=== PATIENT | female | born 1940 | race Caucasian/White ===

== ENCOUNTER 2017-12-18 13:12 | Outpatient (CLI) | payer MEDICARE ==
--- NOTE | 2017-12-18 15:29 | RAD ---
TWO VIEWS LEFT HIP: Date: 12-18-17 History: Left hip pain. FINDINGS: There is no evidence of a fracture, dislocation, or other osseous abnormality involving the left hip. IMPRESSION: No acute osseous abnormality. POS: JAMES
== END 2017-12-18 13:13 | disposition home or self-care (01) ==
LOC: RAD 13:12
PROVIDERS: ATTEND Urology
DX: M25.552 Pain in left hip (principal)
CPT/HCPCS: 81001

== ENCOUNTER 2017-12-25 07:51 | Outpatient (CLI) | payer MEDICARE ==
[2017-12-25] MEDS ORDERED: Iopamidol 370 76% 100 ML VIAL ONE (09:26)
--- NOTE | 2017-12-25 09:38 | CT ---
CT ABDOMEN AND PELVIS WITH AND WITHOUT IV CONTRAST: Date: 12/25/17 PROVIDED CLINICAL HISTORY: Hematuria and left flank pain. FINDINGS: Comparison made with the study dated 05/16/16. The visualized lung bases are free of significant opacity. Small hypodensities involving the left kidney appear stable, likely reflecting cysts. The liver, sple en, pancreas, kidneys, and adrenal glands demonstrate an otherwise unremarkable CT appearance. There is no evidence for urinary tract calculi or hydronephrosis. The delayed images demonstrate no evidenc e for filling defect involving the opacified renal collecting systems, ureters, or urinary bladder. There is inflammatory fat stranding seen about the distal descending colon. Numerous sigmoid and desc ending colonic diverticula are seen. No evidence for extraluminal gas or pericolonic fluid collection . There is no bowel dilatation, additional inflammatory fat stranding, free fluid, or free air apparent . Changes of Joycelyn fundoplication are again seen. Scattered atherosclerotic vascular calcifications ar e noted. The osseous structures demonstrate no concerning osteoblastic or osteolytic lesions. Advanced lumbar spine degenerative changes are redemonstrated. IMPRESSION: 1. An etiology for the patient's hematuria is not evident on this examination. 2. Uncomplicated descending colon diverticulitis. 3. Other chronic findings as above. POS: [facility]
== END 2017-12-25 07:52 | disposition home or self-care (01) ==
LOC: CT 07:51
PROVIDERS: ATTEND Urology
DX: R31.29 Other microscopic hematuria (principal); K57.32 Diverticulitis of large intestine without perforation or abscess without bleeding; R93.422 Abnormal radiologic findings on diagnostic imaging of left kidney; I70.90 Unspecified atherosclerosis; M47.896 Other spondylosis, lumbar region
CPT/HCPCS: 74178; 82565

== ENCOUNTER 2018-01-31 08:20 | Outpatient (CLI) | payer MEDICARE | END 2018-01-31 08:21 | disposition home or self-care (01) | LOC: BICMAMMO 08:20 | PROVIDERS: ATTEND Family Medicine | DX: Z12.31 Encounter for screening mammogram for malignant neoplasm of breast (principal) | CPT/HCPCS: 77063; 77067 ==

== ENCOUNTER 2018-04-17 07:21 | Outpatient (CLI) | payer MEDICARE | END 2018-04-17 07:22 | disposition home or self-care (01) | LOC: BICULT 07:21 | PROVIDERS: ATTEND Otolaryngology Plastic Surgery within the Head & Neck | DX: D49.7 Neoplasm of unspecified behavior of endocrine glands and other parts of nervous system (principal); E04.2 Nontoxic multinodular goiter | CPT/HCPCS: 76536 ==

== ENCOUNTER 2018-09-14 03:35 | Emergency (ER) | payer MEDICARE ==
[2018-09-14 04:00] LABS: Bilirubin Negative (Negative); Blood, Urine Small (Negative); Clarity CLOUDY (Clear); Glucose, Urine (Dipstick) Negative (Negative); Leukocyte Small (Negative); Nitrite Negative (Negative); Protein, Urine (Dipstick) Negative (Neg-Trace); Specific Gravity, Urine 1.019 (1.002-1.036); Urobilinogen 0.2 mg/dL (0.2-1.0); pH, Urine 5.5 (5.0-9.0)
[2018-09-14 04:05] LABS: Bacteria/HPF None Seen HPF (None Seen); Squamous Epithelial 0-3 HPF (0-3)
[2018-09-14 04:06] LABS: Yeast-AUWi Flag 43.3 (0-25.0)
[2018-09-14 04:15] LABS: RBC/HPF 0-3 HPF (0-3)
[2018-09-14 04:16] LABS: Hyaline Casts/LPF NONE SEEN LPF (0-3 Hyaline); Yeast-All Forms None Seen HPF (None Seen)
[2018-09-14 04:20] LABS: #Eosinphils 0.1 thou/uL (0.0-0.7); #Lymphocytes 1.9 thou/uL (1.20-3.40); #Monocytes 0.7 thou/uL (0.11-0.59); #Neutrophils 5.8 thou/uL (1.40-6.50); %Basophils 0.5 % (0.0-1.0); %Eosinophils 1.2 % (0.0-10.0); %Lymphocytes 22.3 % (21.0-51.0); %Monocytes 8.5 % (0.0-10.0); %Neutrophils 67.6 % (42.0-75.0); Hemoglobin 13.2 g/dL (12.0-16.0); Mean Corpuscular HGB CONC 33.9 g/dL (32.0-36.0); Mean Corpuscular Hemoglobin 33.6 pg (27.0-31.0); Mean Corpuscular Volume 99.2 fL (78.0-98.0); Mean Platelet Volume 8.8 fL (7.4-10.4); Platelet Count 210 thou/uL (130-400); RBC Distribution Width 11.6 % (11.5-14.5); Red Blood Cell (RBC) Count 3.93 mill/uL (4.20-5.40); White Blood Cell (WBC) Count 8.6 thou/uL (4.8-10.8)
[2018-09-14 04:41] LABS: ALT (SGPT) 9 U/L (8-55); AST (SGOT) 12 U/L (5-34); Albumin 3.8 g/dL (3.4-4.8); Alkaline Phosphatase 73 U/L (40-150); Anion Gap 12 mmol/L (10-20); BUN (Urea Nitrogen) 19 mg/dL (9.8-20.1); Bilirubin, Total 0.4 mg/dL (0.2-1.2); Calc. Creatinine Clearance 0 mL/min (70-130); Calcium 9.3 mg/dL (7.8-10.44); Carbon Dioxide 26 mmol/L (23-31); Chloride 103 mmol/L (98-107); Estimated GFR-MDRD 45; Globulin 3.2 g/dL (2.4-3.5); Glucose 123 mg/dL (83-110); Lipase 22 U/L (8-78); Potassium 3.4 mmol/L (3.5-5.1); Sodium 138 mmol/L (136-145)
[2018-09-14] MEDS ORDERED: Ondansetron PF 4 MG/2 ML Vial ONE (06:20)
[2018-09-14] MEDS ORDERED: Morphine 4 MG/ML VIAL ONE (06:20)
--- NOTE | 2018-09-14 08:39 | CT ---
PRELIMINARY REPORT/[facility]/EMERGENTY AFTER-HOURS PROCEDURE Addendum created by Isauro Wick MD on 09/14/2018 6:06 AM Central Time ([place] & [place]) THIS REPORT CONTAINS FINDINGS THAT MAY BE CRITICAL TO PATIENT CARE. The findings were verbally commun icated via telephone conference with BRANDY JOSUE at 6:05 AM RAILWAY ENGINEER on 09/14/2018. The findings were acknowledged and understood. Correlate clinically for prior hysterectomy versus uterine atrophy. Initial Report created on 09/14/2018 5:49 AM Central Time ([place] & [place]) CT Abdomen and Pelvis With Contrast EXAM DATE/TIME: 09/14/2018 5:07 AM CLINICAL HISTORY: 77 years old, female; Pain; Abdominal pain; Generalized; Patient HX: F 77 presents to ed with llq and epigastric abdominal pain that radiates to her left flank. Denies any change to bowel habits. HX of diverticulosis and diverticulitis. Chronic medications for HTN. Pain began 1 day pilot captain, took a hydrocodone at 20: 00 yesterday. TECHNIQUE: Axial computed tomography images of the abdomen and pelvis with intravenous contrast. Coronal reformatted images were created and reviewed. COMPARISON: No relevant prior studies available. FINDINGS: Lower thorax: There is subpleural atelectasis of the dependent portions of the lungs. Patient is post surgery at the gastroesophageal junction probably for hiatal hernia repair. ABDOMEN: Liver: There are no focal liver lesions identified. Gallbladder and bile ducts: The gallbladder is normal. There is no evidence of biliary ductal dilatio n. Pancreas: The pancreas appears normal. No ductal dilatation. Spleen: The spleen is normal. Adrenals: The adrenal glands are normal. Kidneys and ureters: The right kidney is normal. There is marked LEFT hydroureteronephrosis with abru pt collapse of the LEFT ureter within the lateral LEFT pelvis adjacent to the obturator canal possibl y representing obturator hernia with ureteral entrapment. There is trace fluid in the perirenal soft tissue. The There is a tiny LEFT renal cyst, incompletely evaluated. Stomach and bowel: Stomach is otherwise unremarkable. The duodenum is unremarkable. There is moderate colonic diverticulosis. Appendix: No evidence of appendicitis. PELVIS: Bladder: Unremarkable as visualized. Reproductive: Surgically absent. ABDOMEN and PELVIS: Intraperitoneal space: Normal. No free air. No significant fluid collection. Bones/joints: No acute fracture. No dislocation. Soft tissues: Unremarkable. Vasculature: Normal. No abdominal aortic aneurysm. Lymph nodes: Normal. No enlarged lymph nodes. IMPRESSION: Marked LEFT hydroureteronephrosis with abrupt collapse of the LEFT ureter within the lateral LEFT pel vis adjacent to the obturator canal suspicious for obturator hernia with ureteral entrapment. Thank you for allowing us to participate in the care of your patient. Dictated and Authenticated by: Isauro Wick MD 09/14/2018 5:49 AM Central Time ([place] & [place]) FINAL REPORT CT ABDOMEN AND PELVIS WITH IV CONTRAST: Date: 09/14/18 FINDINGS/IMPRESSION: I agree with the preliminary report given by Vernell. POS: OFF
--- NOTE | 2018-09-14 16:20 | CON ---
DATE OF CONSULTATION: 09/14/2018 CHIEF COMPLAINT: Left abdominal pain, left groin pain. HISTORY OF PRESENT ILLNESS: The patient is a 77-year-old female, who is known to myself from prior evaluation. She presented to the emergency room today complaining of left lower quadrant abdominal pain. She also notes epigastric pain. She was evaluated in the emergency room per Dr. Ha. CT scan was obtained surprisingly revealing a significant left hydronephrosis and hydroureter with what appeared to be an obturator hernia, into which the ureter seemed to be somewhat obstructed leading to the hydroureter. Myself and her urologist, Dr. Mackenzie, were consulted in regard to this. LABORATORY DATA: Her laboratory evaluation reveals a normal CBC with a white blood cell count of 8.6 and hemoglobin of 13. Her comprehensive metabolic panel reveals more or less normal electrolytes. Her creatinine is a little bit elevated at 1.1. There were no other significant abnormal findings on her CT scan. PAST MEDICAL HISTORY: Significant for, 1. Hypertension. 2. Arthritis. 3. History of sinusitis. 4. History of gastroesophageal reflux disease. 5. History of peptic ulcer issues. 6. Anxiety. PAST SURGICAL HISTORY: 1. Right shoulder surgery 2007. 2. Cataract surgery. 3. Foot surgery. 4. Cystocele repair. 5. Rectocele repair. 6. In 2011, she had what she believes was a left ureteral stent placed by a urologist in [place] for a similar problem. She was told at that time that she had some form of hernia causing this. MEDICATIONS: 1. Fluoxetine. 2. Losartan. 3. Hydrochlorothiazide. 4. Dexilant. ALLERGIES: COMPAZINE. PERSONAL AND SOCIAL HISTORY: She is . She has five children. She does not smoke. Drinks alcohol rarely. She lives by herself. REVIEW OF SYSTEMS: Otherwise unremarkable. FAMILY HISTORY: Noncontributory. PHYSICAL EXAMINATION: VITAL SIGNS: In the emergency room, she was afebrile. Pulse is 66, blood pressure 130/76. Her vital signs remained stable throughout her time in the emergency room. GENERAL: She is a well-developed, well-nourished, pleasant white female, resting, in no acute distress. She is alert and oriented x3. I examined her at the same time with Dr. Mackenzie. HEAD, EYES, EARS, NOSE, AND THROAT: Unremarkable. NECK: Supple. LUNGS: Clear to auscultation. CARDIAC: Regular rate and rhythm without murmur. ABDOMEN: Soft, nontender, and nondistended. Bowel sounds present. Normoactive. EXTREMITIES: Unremarkable. There is no palpable mass below the inguinal ligament. ASSESSMENT AND PLAN: The patient with a left obturator hernia that appears to be causing ureteral entrapment, injury, and hydronephrosis. Dr. Mackenzie and I spoke with her regarding possible temporizing measure with a ureteral stent, but she understands that the eventual treatment for this will be hernia repair. I told her that I would recommend approaching this as a robotic approach, but an open approach would be a possibility as well. I explained to her that I will be out of town for the next week and a half, but would be happy to schedule her thereafter. Dr. Mackenzie explained that he would be happy to place a stent, but that for now it does not seem to be necessary except for comfort measures. She opts against the stent for now, and I therefore gave her a prescription for [facility] to help her with her discomfort. I will schedule her for laparoscopic repair of her left obturator hernia with a robotic assistance and we will plan on performing this just after the of the year. She understands that there are general surgeons and urologist available to cover for myself and Dr. Mackenzie, should anything become more problematic in the interim. Job ID: [id number]
== END 2018-09-14 09:05 | disposition home or self-care (01) ==
LOC: ERS 03:35
DX: N13.1 Hydronephrosis with ureteral stricture, not elsewhere classified (principal); F32.9 Major depressive disorder, single episode, unspecified; Z79.82 Long term (current) use of aspirin; Z79.899 Other long term (current) drug therapy
CPT/HCPCS: 36415; 74177; 80053; 81003; 81015; 83690; 85025; 93005; 96361; 96374; 96375; J2270; J2405

== ENCOUNTER → 2018-09-27 | Day surgery (SDC) | payer MEDICARE ==
[2018-09-26 11:01] VITALS: BMI 29.0
== END ==
LOC: SDC 07:12
PROVIDERS: ATTEND Specialist
DX: K45.0 Other specified abdominal hernia with obstruction, without gangrene (principal); Z53.9 Procedure and treatment not carried out, unspecified reason; Z79.82 Long term (current) use of aspirin; Z79.899 Other long term (current) drug therapy; Z88.8 Allergy status to other drugs, medicaments and biological substances

== ENCOUNTER 2018-10-06 17:46 | Inpatient (IN) | payer MEDICARE ==
[~2018-10-06 17:46] MED LIST: ISOVUE-370 76%-LOCM 1 ML ONE
[2018-10-06 18:46] LABS: #Eosinphils 0.1 thou/uL (0.0-0.7); #Lymphocytes 1.8 thou/uL (1.20-3.40); #Monocytes 0.7 thou/uL (0.11-0.59); #Neutrophils 5.1 thou/uL (1.40-6.50); %Basophils 0.6 % (0.0-1.0); %Lymphocytes 23.3 % (21.0-51.0); %Monocytes 9.3 % (0.0-10.0); %Neutrophils 65.8 % (42.0-75.0); Hemoglobin 13.2 g/dL (12.0-16.0); Mean Corpuscular HGB CONC 33.3 g/dL (32.0-36.0); Mean Corpuscular Hemoglobin 33.3 pg (27.0-31.0); Mean Corpuscular Volume 99.7 fL (78.0-98.0); Mean Platelet Volume 9.2 fL (7.4-10.4); Platelet Count 219 thou/uL (130-400); RBC Distribution Width 11.6 % (11.5-14.5); Red Blood Cell (RBC) Count 3.97 mill/uL (4.20-5.40); White Blood Cell (WBC) Count 7.8 thou/uL (4.8-10.8)
[2018-10-06 18:54] LABS: Bilirubin Negative (Negative); Blood, Urine Trace (Negative); Clarity CLEAR (Clear); Glucose, Urine (Dipstick) Negative (Negative); Leukocyte Small (Negative); Nitrite Negative (Negative); Protein, Urine (Dipstick) Negative (Neg-Trace); Specific Gravity, Urine 1.024 (1.002-1.036)
[2018-10-06 18:58] LABS: Bacteria/HPF None Seen HPF (None Seen); Hyaline Casts/LPF 0-3 HYALINE CAST LPF (0-3 Hyaline); Pathc Cast-AUWi Flag 0.58 (0-2.49); Squamous Epithelial 0-3 HPF (0-3)
[2018-10-06 19:07] LABS: ALT (SGPT) 10 U/L (8-55); AST (SGOT) 14 U/L (5-34); Albumin 3.9 g/dL (3.4-4.8); Alkaline Phosphatase 77 U/L (40-150); Anion Gap 16 mmol/L (10-20); BUN (Urea Nitrogen) 24 mg/dL (9.8-20.1); Bilirubin, Total 0.2 mg/dL (0.2-1.2); Calc. Creatinine Clearance 0 mL/min (70-130); Calcium 9.4 mg/dL (7.8-10.44); Carbon Dioxide 22 mmol/L (23-31); Chloride 103 mmol/L (98-107); Estimated GFR-MDRD 41; Globulin 3.3 g/dL (2.4-3.5); Glucose 102 mg/dL (83-110); Lipase 34 U/L (8-78); Protein, Total 7.2 g/dL (6.0-8.3); Sodium 137 mmol/L (136-145)
[2018-10-06] MEDS ORDERED: Ketorolac Tromethamine 30 MG/ML VIAL ONE (19:50)
[2018-10-06] MEDS ORDERED: Morphine 4 MG/ML VIAL ONE (19:50)
[2018-10-06] MEDS ORDERED: Ondansetron PF 4 MG/2 ML Vial ONE (20:14)
--- NOTE | 2018-10-06 20:40 | CT ---
ABDOMEN AND PELVIC CT WITH IV CONTRAST 10/06/18 HISTORY: Abdominal pain, hernia. COMPARISON: 09/14/18 FINDINGS: The lung bases are clear. Postop changes noted involving the stomach. The gallbladder, liver, pancrea s, and spleen appear unremarkable. Adrenal glands are unremarkable. There is again noted to be left r enal hydronephrosis with some perinephric fat stranding and dilated ureter down into the level of the left sciatic notch through which it has herniated. The amount of hydronephrosis is stable to very sl ightly improved from the prior study at which time there was also noted to be herniation of the left ureter into the sciatic notch. The right kidney is unremarkable. Extensive colonic diverticulosis wit hout acute diverticulitis. Urinary bladder is unremarkable. IMPRESSION: Marked left renal hydronephrosis with some perinephric fat stranding, evidence for obstruction. Littl e change from the prior 09/14/18 study. Urology followup is strongly recommended in this regard. Give n the abnormal position of the left ureter which is herniated into the left sciatic notch and causing marked proximal obstruction. Colonic diverticulosis without diverticulitis. POS: JAMES
[2018-10-06] MEDS ORDERED: cefTRIAXone\\ROCEPHIN 2 GM VIAL ONE (22:18)
[2018-10-06] MEDS ORDERED: Fentanyl 100 MCG/2 ML VIAL ONE (22:22)
[2018-10-06] MEDS ORDERED: Morphine 4 MG/ML VIAL SLOW IVP PRN (22:51)
[2018-10-06] MEDS ORDERED: HYDROcodone/Acetaminophen 5/325 mg Tablet PO PRN ×2 (22:52)
[2018-10-06] MEDS ORDERED: Ondansetron PF 4 MG/2 ML Vial IVP PRN (22:52)
[2018-10-06] MEDS ORDERED: Ondansetron ODT 4 MG TAB SL PRN (22:52)
[2018-10-06] MEDS ORDERED: Acetaminophen 325 MG TAB PO PRN (22:52)
[2018-10-06] MEDS ORDERED: Sodium Chloride 0.45% 1,000 ML IV SCH (23:00)
[2018-10-07] MEDS ORDERED: Morphine 4 MG/ML VIAL SLOW IVP PRN ×2 (00:49→12:15)
[2018-10-07] MEDS ORDERED: Ondansetron PF 4 MG/2 ML Vial IVP PRN (00:49)
[2018-10-07] MEDS ORDERED: Ondansetron ODT 4 MG TAB SL PRN (00:50)
[2018-10-07] MEDS ORDERED: HYDROcodone/Acetaminophen 5/325 mg Tablet PO PRN ×2 (00:50)
[2018-10-07] MEDS ORDERED: Acetaminophen 325 MG TAB PO PRN (00:50)
[2018-10-07 01:00] VITALS: BMI 29.4
[2018-10-07] MEDS ORDERED: Sodium Chloride 0.45% 1,000 ML IV SCH (01:00)
[2018-10-07] MEDS ORDERED: diphenhydrAMINE 25 MG CAP PO PRN (11:33)
[2018-10-07] MEDS ORDERED: hydrALAZINE 20 MG/ML VIAL SLOW IVP PRN (11:33)
--- NOTE | 2018-10-07 14:49 | HP ---
REASON FOR ADMISSION: Left flank pain with known uretero-sciatic hernia. CHIEF COMPLAINT: "My left side hurt too bad." HISTORY OF PRESENT ILLNESS: Ms. Griffin is a 77-year-old white female, who is well known to me from previous admissions regarding a left ureteral obstruction. She has previously had this treated with a ureteral stent many years ago, which temporized the problem and actually got the ureter out of the hernia sac. However, she presented with a recurrent uretero-sciatic hernia toward the end of August. We had planned a tentative surgery with her in early September, but this had to be altered when it was discovered that she did not have an obturator hernia, but truly a uretero-sciatic hernia. She was tentatively scheduled at that point for October 18 for surgery, which she was waiting for, but unfortunately, she began having worsening left flank pain with nausea. She did not have vomiting nor has she experienced any fevers, but her pain became so bad to the point where her oral pain medications were no longer controlling her pain. As such, she came to the ER where I had her admitted for further pain control. She currently states that she is still nauseated, but not vomiting and still has no fevers. Labs in the ER did not suggest any kind of infection other than continued ureteral inflammation. PAST MEDICAL HISTORY: 1. Hypertension. 2. Arthritis. 3. Sinusitis. 4. GERD. 5. Peptic ulcer disease. 6. Anxiety. 7. Uretero-sciatic hernia. PAST SURGICAL HISTORY: 1. Right shoulder surgery. 2. Cataract surgery. 3. Foot surgery. 4. Cystocele repair. 5. Rectocele repair. 6. Left ureteral stent placement in [place]. HOME MEDICATIONS: 1. Fluoxetine. 2. Losartan. 3. Hydrochlorothiazide. 4. Dexilant. 5. Calcium carbonate with D3. 6. Baby aspirin. ALLERGIES: COMPAZINE. FAMILY HISTORY: Noncontributory. SOCIAL HISTORY: The patient is . She has 5 children. Denies smoking. Drinks alcohol only on rare occasion. Does not use any illicit drugs. REVIEW OF SYSTEMS: A 12-point review of systems is unremarkable other than what was commented on the HPI, specifically her left flank pain and nausea. Otherwise, she does not endorse any other positive symptoms. PHYSICAL EXAMINATION: VITAL SIGNS: Temperature 97.8, pulse 71, respirations 18, blood pressure 115/66, and saturations 96% on room air. GENERAL: Appears slightly uncomfortable with a washcloth on her forehead, but is otherwise communicative and alert, well-nourished, well-developed, appears stated age. HEENT: Normocephalic, atraumatic. Sclerae nonicteric. Pupils symmetric and round. Moist mucous membranes. Trachea midline. CARDIOVASCULAR: Regular rate and rhythm. Normal S1 and S2, symmetric pulses. CHEST: No increased work of breathing. Symmetric expansion. LUNGS: Clear anteriorly. ABDOMEN: Soft, nondistended. Tenderness to palpation on the left with left CVA tenderness. No significant suprapubic tenderness. No guarding, rebound, or peritoneal signs. Positive bowel sounds. No organomegaly. : Deferred at this time. MUSCULOSKELETAL: No joint deformities or joint erythema noted. Full range of Motion. NEUROLOGIC: Cranial nerves 2 through 12 grossly intact. No focal or sensory motor deficits identified. SKIN: Warm and dry. Good turgor. No rashes or lesions. PSYCHIATRIC: Alert and oriented x3, appears uncomfortable, but otherwise appropriate mood and affect. LABORATORY DATA: On laboratory evaluation, full set of labs in the [facility] system which I have reviewed. Of note, the patient's white count is 7.8 with a hemoglobin of 13.2. Creatinine is currently 1.27. Urinalysis demonstrates trace blood, small leukocyte esterase, 4 to 6 red cells, 4 to 6 white blood cells, nitrite negative, and bacteria none seen. Urine culture is currently pending. IMAGING STUDIES: CT from October 06 demonstrates marked left renal hydronephrosis with perinephric stranding with evidence for obstruction, which is relatively unchanged from September 14 when she initially presented to the ER. The left ureter is in an abnormal position, herniated into the left sciatic notch, causing marked proximal obstruction. There is diverticulosis without diverticulitis. ASSESSMENT AND PLAN: A 77-year-old white female with uretero-sciatic hernia with left ureteral obstruction and hydronephrosis with uncontrolled pain. I discussed this with the patient and told her that, at this time, I would not recommend ureteral stent placement as we are planning a surgery as the ureteral stent will cause significant inflammation and make extraction of the ureter out of the hernia sac difficult, along with dissection and reanastomosis of the ureter if necessary. As such, I told her a better option would be a nephrostomy tube, but she does not like the idea of a nephrostomy tube and states that she wants to have her surgery moved up. At the current time, I am not sure where on the surgery scheduled, I will be able to move her up, but I can discuss this with Dr. Quiñonez and see if there can be availability for an add-on case sometime this week, but she does understand that add-on cases can be subjected to change and may be canceled altogether, and that there will be no definitive time even possible this week as there is no absolute emergency to do the surgery at the current time, and the nephrostomy tube is always a viable option. I did go over the surgery in detail with her including the postoperative course and recovery as well as risks, which include, but are not limited to bleeding, infection, ureteral stricture formation, damage to the ureter, need for further surgeries, likely persistent ureteral reflux if a ureteral reimplantation is necessary, and a possibility for recurrent uretero-sciatic hernia despite correction. She understands these risks and states that she wants to go forward with the surgery. I will discuss this with Dr. Quiñonez, and in the meantime, we will keep her here until her urine culture finalizes and keep her on antibiotics. As of now, since she does not want to have a nephrostomy tube, I will let her eat and drink, and we will continue to monitor her renal function and labs until we have a definitive plan in place. Job ID: [id number]
[2018-10-07] MEDS: Ondansetron PF 4 MG/2 ML Vial IVP PRN (15:11)
[2018-10-07] MEDS: HYDROcodone/Acetaminophen 5/325 mg Tablet PO PRN (15:12)
[2018-10-07] MEDS: Lactated Ringer's 1,000 ML IV SCH (19:53)
[2018-10-07] MEDS ORDERED: cefTRIAXone\\ROCEPHIN 1 GM in Sodium Chloride 0.9% 100 ML IVPB SCH (22:00)
[2018-10-08] MEDS: Ondansetron PF 4 MG/2 ML Vial IVP PRN (05:35)
[2018-10-08 06:05] LABS: #Eosinphils 0.1 thou/uL (0.0-0.7); #Lymphocytes 1.7 thou/uL (1.20-3.40); #Monocytes 0.7 thou/uL (0.11-0.59); #Neutrophils 6.6 thou/uL (1.40-6.50); %Basophils 0.2 % (0.0-1.0); %Eosinophils 1.1 % (0.0-10.0); %Lymphocytes 18.3 % (21.0-51.0); %Monocytes 7.6 % (0.0-10.0); %Neutrophils 72.8 % (42.0-75.0); Hemoglobin 12.9 g/dL (12.0-16.0); Mean Corpuscular HGB CONC 33.6 g/dL (32.0-36.0); Mean Corpuscular Volume 98.4 fL (78.0-98.0); Mean Platelet Volume 9.3 fL (7.4-10.4); Platelet Count 195 thou/uL (130-400); RBC Distribution Width 11.5 % (11.5-14.5)
[2018-10-08 06:18] LABS: Anion Gap 13 mmol/L (10-20); BUN (Urea Nitrogen) 16 mg/dL (9.8-20.1); Calc. Creatinine Clearance 42 mL/min (70-130); Carbon Dioxide 25 mmol/L (23-31); Chloride 105 mmol/L (98-107); Estimated GFR-MDRD 37; Glucose 113 mg/dL (83-110); Potassium 3.5 mmol/L (3.5-5.1); Sodium 139 mmol/L (136-145)
[2018-10-08] MEDS: Lactated Ringer's 1,000 ML IV SCH ×2 (06:32→14:59)
[2018-10-08] MEDS: Hydrochlorothiazide 25 MG TAB PO SCH (07:26)
[2018-10-08] MEDS: FLUoxetine HCl 20 MG CAP PO SCH (07:26)
[2018-10-08] MEDS ORDERED: Losartan 25 MG TAB PO SCH (09:00)
[2018-10-08] MEDS ORDERED: Bupivacaine/Epinephrine 0.25% 30 ML VIAL ONE (11:31)
[2018-10-08] MEDS ORDERED: Iothalamate Meglumine 60% 50 ML VIAL FS ONE (11:31)
[2018-10-08] MEDS ORDERED: Morphine 2 MG/ML SYRINGE ONE (11:43)
[2018-10-08] MEDS ORDERED: Ondansetron PF 4 MG/2 ML Vial ONE ×2 (11:44→16:52)
[2018-10-08] MEDS ORDERED: Fentanyl 250 MCG/5 ML VIAL ONE (11:54)
[2018-10-08] MEDS ORDERED: Midazolam HCl 2 mg/2 ml Vial ONE (12:09)
[2018-10-08] MEDS ORDERED: Dexamethasone 4 mg/ml Vial ONE (12:09)
[2018-10-08] MEDS ORDERED: Fentanyl 100 MCG/2 ML VIAL ONE (12:09)
[2018-10-08] MEDS ORDERED: CEFAZOLIN 2 GM/50 ML BAG ONE (12:18)
--- NOTE | 2018-10-08 12:21 | PRG ---
DATE OF SERVICE: 10/08/2018 SUBJECTIVE: The patient states that she has had a lot of nausea this morning. Her pain is relatively well controlled, but she is not throwing up, just constantly feels nauseated. She apparently does not tolerate Phenergan and Zofran has not been working well. OBJECTIVE: VITAL SIGNS: Temperature 98.4, pulse 82, respirations 16, blood pressure 132/72, and saturations 95% on room air. GENERAL: Appears slightly uncomfortable and ill-appearing, but otherwise she is communicative and alert. CARDIOVASCULAR: Regular rate and rhythm. CHEST: No increased work of breathing. Symmetric expansion of lungs. ABDOMEN: Soft, nontender, and nondistended. Positive bowel sounds. Very mild left CVA tenderness now. EXTREMITIES: No clubbing, cyanosis, or edema. LABORATORY DATA: On laboratory evaluation, the full set of labs in the [facility] system, which I reviewed. Of note, white count is 9 with a hemoglobin of 12.9. Creatinine has risen slightly to 1.39. ASSESSMENT AND PLAN: A 78-year-old white female with a left ureteral sciatic hernia with ureteral obstruction and worsening hydronephrosis and slight decline in kidney function. We had discussed about taking her to the operating room early and after discussion with Dr. Quiñonez, we had elected to do her surgery today. She is already n.p.o. and scheduled for the surgery. We have already discussed the surgery in detail in the prior note with all risks and benefits discussed. She is ready for surgery and will be taken today. We will keep her in the hospital for postoperative recovery. Job ID: [id number]
--- NOTE | 2018-10-08 13:36 | CON ---
DATE OF CONSULTATION: HISTORY OF PRESENT ILLNESS: Ms. Griffin is known to myself from a recent consultation in the emergency room on September 14. At that time, she had presented complaining of left-sided abdominal pain. CT scan was felt by Radiology at that time to be consistent with an obturator hernia that was leading to hydroureter and hydronephrosis. Decision was made at that time to discharge her from the emergency room and plan an elective surgery to repair her obturator hernia. She had presented to the hospital on September 27 for this purpose. At that time, review of the CT scan demonstrated that her hernia was in fact not an obturator hernia, but a ureterosciatic hernia. For this reason, the operation was canceled and decision was made to coordinate with her urologist, Dr. Mackenzie for appropriate treatment of this very unusual hernia. She did return to the emergency room late at night on October 06 (Monday). She was admitted by Dr. Mackenzie for pain control. Dr. Mackenzie saw her and I have coordinated and decided to proceed with her surgery for today, October 08. Past medical history, past surgical history, medications, allergies, personal, social history, etc., are unchanged from my consultation on September 14. ASSESSMENT: The patient with a very unusual ureterosciatic hernia leading to hydronephrosis and hydroureter. Dr. Mackenzie and I have elected to proceed with an open repair of this. I have discussed the operation in detail with her as well as potential risks. She understands the possibility of repair of the hernia with or without mesh as well as possibility of ureteral resection with primary repair versus reimplantation. Dr. Mackenzie also plans on initial cystoscopy and guidewire placement. Job ID: [id number]
[2018-10-08] MEDS ORDERED: Albumin 5% 500 ML ONE (14:26)
[2018-10-08] MEDS ORDERED: Bupivacaine HCl 0.5%/Epinephrine 1:200,000/PF 30 ml Vial ONE (15:32)
[2018-10-08] MEDS ORDERED: Ondansetron HCl/PF 4 MG/2 ML Vial IVP PRN (15:40)
--- NOTE | 2018-10-08 15:58 | RAD ---
RETROGRADE URETEROGRAM INTRAOEPRATIVE FLUOROSCOPY: HISTORY: Stent placement. FINDINGS: Intraoperative fluoroscopy was provided for retrograde study as performed by Dr. Mackenzie. Spot fluor oscopic images show contrast opacification of a dilated left ureter. Final image shows the proximal pigtail of the left ureteral stent overlying the lower renal pelvis. FLUORO TIME: 32 seconds. POS: [facility]
[2018-10-08 16:22] LABS: Hemoglobin 10.2 g/dL (12.0-16.0); Mean Corpuscular Hemoglobin 33.5 pg (27.0-31.0); Mean Corpuscular Volume 98.7 fL (78.0-98.0); Mean Platelet Volume 8.9 fL (7.4-10.4); Platelet Count 171 thou/uL (130-400); RBC Distribution Width 11.6 % (11.5-14.5); Red Blood Cell (RBC) Count 3.04 mill/uL (4.20-5.40); White Blood Cell (WBC) Count 13.3 thou/uL (4.8-10.8)
--- NOTE | 2018-10-08 16:45 | OP ---
DATE OF PROCEDURE: 10/08/2018 PREOPERATIVE DIAGNOSIS: Left ureterosciatic hernia. POSTOPERATIVE DIAGNOSIS: Left ureterosciatic hernia. PROCEDURES PERFORMED: Open repair of ureterosciatic hernia with cystoscopy and left ureteral stent placement per Dr. Mackenzie, ureteropexy per Dr. Mackenzie, placement of omental flap per Dr. Quiñonez. CO-SURGEON: Jose Mackenzie MD ANESTHESIA: General endotracheal. INDICATIONS: The patient is a 78-year-old white female. She presented with left flank and pelvic pain with CT scan demonstrated a left ureterosciatic hernia. She presents to the operating room today for repair of this. DESCRIPTION OF PROCEDURE: Informed consent was obtained. The patient was taken to the operating room, where general endotracheal anesthesia was obtained with the patient in supine position. She was placed into a dorsal lithotomy using Yellofins stirrups. Dr. Mackenzie performed cystoscopy and was able to identify the area of obstruction within the distal left ureter. A guidewire was passed across this. It appeared that the obstruction of the ureter may have been somewhat alleviated by placing the wire as the ureteral morphology changed after this was placed. The abdomen was prepped with ChloraPrep and draped in sterile fashion. TAP block had been placed preoperatively per Anesthesia. A low midline abdominal incision was created and dissection was carried through skin and subcutaneous tissue. Fascia was incised and the peritoneal cavity was entered in the midline. Bookwalter retraction device was utilized to assist with retraction and exposure. The patient was noted to have a segment of small bowel that was adherent to the right pelvic sidewall. This was mobilized. There were couple of small serosal defects in the small bowel and these were repaired with 3-0 silk suture. The small bowel was then reflected out of the pelvis. The lateral peritoneal attachments of the sigmoid colon were mobilized. The sigmoid colon was reflected laterally. There were adhesions from a prior hysterectomy, such that the anterior aspect of the upper rectum was adherent to the peritoneum anteriorly. This was mobilized away to give full exposure of the sigmoid colon and rectum. Dissection was then carried out in the retroperitoneum. The dilated ureter was quickly identified. It was traced distally until the area of the ureter becoming normal in diameter was identified. By palpation, lateral and posterior to this area was identified as the defect. I retracted the ureter to the right lateral aspect and cleared the area of the hernia. This was repaired with 2 interrupted sutures of 2-0 Vicryl. In the course of placing a 3rd planned suture, bleeding was noted. This did not stop when the suture was secured and I therefore did not secure that suture, instead I examined for what was causing the bleeding. This likely appeared to be an obturator vein. It was difficult to trace this. It was easy to find the distal aspect of the vein, but the proximal aspect was challenging. I attempted several times to better identify this, but the deep retroperitoneal location was made it challenging. Instead, I held pressure on this for several minutes. Some Floseal was then sprayed across the area of the bleeding when there was essentially no further bleeding. I held this in place with some Surgicel and held pressure over the Surgicel for 3 or 4 minutes. When the pressure was released, there was no further bleeding from this area. This was inspected several more times over the course of the operation. The area was inspected and it was felt that the hernia repair was adequate. Attention was then turned to the ureter. Ureteropexy was performed per Dr. Mackenzie. He then placed a stent through the ureter uneventfully up into the left kidney. We then returned our attention to the pelvis. The area was irrigated and all irrigant was aspirated. The retroperitoneal site was inspected one final time, which was found to be hemostatic. There were only minor areas of oozing noted. An omental flap was then created based on the distal transverse colon and this was passed down into the left hemipelvis lateral to the ureter. It was secured to the peritoneum with a single interrupted suture of 3-0 Vicryl. Seprafilm was then placed posterior to the fascia and the fascia was closed with running suture of looped #1 PDS. The wound was copiously irrigated and closed with skin arlette. Dry gauze dress was placed externally. There were no complications other than approximately 300 mL blood loss from the obturator vein. The patient tolerated the procedure well and was taken to recovery room in stable condition. Job ID: [id number]
[2018-10-08 16:49] LABS: Anion Gap 16 mmol/L (10-20); BUN (Urea Nitrogen) 12 mg/dL (9.8-20.1); Calc. Creatinine Clearance 57 mL/min (70-130); Calcium 8.4 mg/dL (7.8-10.44); Carbon Dioxide 20 mmol/L (23-31); Chloride 106 mmol/L (98-107); Estimated GFR-MDRD 53; Glucose 171 mg/dL (83-110); Potassium 3.5 mmol/L (3.5-5.1); Sodium 138 mmol/L (136-145)
[2018-10-08] MEDS ORDERED: ePHEDrine/0.9% NaCl/PF SYRINGE 50 mg/10 ml ONE (16:52)
[2018-10-08] MEDS ORDERED: Dexamethasone 20 MG/5 ML VIAL ONE (16:52)
[2018-10-08] MEDS ORDERED: Glycopyrrolate 0.2 MG/ML 5 ML SYRINGE ONE (16:52)
[2018-10-08] MEDS ORDERED: Lidocaine 1% PF 5 ML VIAL ONE (16:52)
[2018-10-08] MEDS ORDERED: Succinylcholine Chloride 20 MG/ML 10 ml SYRINGE FS ONE (16:52)
[2018-10-08] MEDS ORDERED: Rocuronium Bromide 10 MG/ML (10ML VIAL) ONE (16:52)
[2018-10-08] MEDS ORDERED: PROPOFOL 200 MG/20 ML VIAL ONE (16:52)
[2018-10-08] MEDS: Sodium Chloride 0.9% 1,000 ML IV SCH (18:06)
[2018-10-08] MEDS: HYDROcodone/Acetaminophen 5/325 mg Tablet PO PRN (21:54)
--- NOTE | 2018-10-08 23:03 | OP ---
DATE OF PROCEDURE: 10/08/2018 CO-SURGEON: Dr. Yo Quiñonez. PREOPERATIVE DIAGNOSIS: Left ureteral static hernia. POSTOPERATIVE DIAGNOSIS: Left ureteral static hernia. PROCEDURES PERFORMED: Cystoscopy with left ureteral stent placement as well as ureteropexy and repair of left ureteral sciatic hernia. INDICATION FOR PROCEDURE: Mrs. Griffin is a 78-year-old white female who presented with left flank pain originally in August with discovery of a left ureteral sciatic hernia problem which she has had once before. At that time, it was simply treated with stenting alone, but now she presented with recurrence. We elected to go ahead and repair it definitively. This had been scheduled toward the end of September; however, she re-presented back to the emergency room with severe flank pain and uncontrolled pain with on medication. Therefore, we elected to take her more urgently for repair of this hernia. DESCRIPTION OF PROCEDURE: After identification of armband and verification of consent, the patient was brought back to the operating room, where she underwent general anesthesia with endotracheal intubation. She was then placed in dorsal lithotomy position and prepped and draped in usual sterile fashion. After appropriate time-out, a lubricated 22-Gambian rigid cystoscope was introduced per urethra into the bladder. The cystoscopy demonstrated a normal bladder with bilateral ureteral orifices in orthotopic location. There was poor efflux from the left ureter. This was cannulated with a 0.035 Sensor wire, which had some hang ups toward the area of the sciatic hernia. With some manipulation, the wire was able to be navigated past the area of the hernia and advanced up into the ureter, at which point the herniated ureter popped back out of its hernia location and into the midline. The wire was then advanced back all the way up into the kidney. The wire was then affixed to the drapes and the cystoscope removed and a Johnson catheter placed alongside the wire into the bladder for drainage during surgery. Please note, Dr. Quiñonez is dictating a separate operative report to detail the nature of the exploratory laparotomy and repair of the ureteral sciatic hernia (please see operative note that he has dictated for details). Once the ureteral static hernia had been closed and the bleeding had been controlled in that area, I decided to perform the ureteropexy to keep the ureter affixed primarily with the rectum and lower sigmoid colon to avoid the hernia potentially going back into the ureteral sciatic hernia space. 4-0 Vicryl was used to take the adventitia and surrounding serosa of the ureter being declan to not take too much ureter or go into the lumen of the ureter. The serosa and some of the peritoneum of the rectum was then taken and this was done in 4 different locations from the distal ureter all the way up along the aspect of the rectum to keep the ureter fixed to the side of the rectum. It had good fixation without any tortuosity or kinking of the ureter to ensure that the stent would go up easily and did not appear to be any obstruction. At this point, I went back with the cystoscope back in the bladder and backloaded the wire through the cystoscope upon entry. A 6 x 26 double-J stent with no string attached was advanced over the Sensor wire, which went up easily up to the level of the kidney. The wire was then removed leaving a good curl in the kidney on fluoroscopy and a good curl in the bladder visually. The bladder was left full and the cystoscope removed. A 16-Gambian Johnson catheter was then placed into the patient's bladder and 10 mL of sterile water placed into the balloon. At this point, we began the omental flap and again, Dr. Quiñonez dictating this portion of the procedure up to the closure of the patient. The remainder of the operative details can be found in his operative note. ESTIMATED BLOOD LOSS: For combined procedures around 300 mL. SPECIMENS: None. RETAINED TUBES AND DRAINS: A 16-Gambian Johnson catheter and a left 6 x 26 double-J ureteral stent. COMPLICATIONS: Only minor bleeding at the area of the ureteral sciatic hernia, which was controlled with FloSeal and Surgicel. DISPOSITION: The patient will be admitted back to the Urology Service. Dr. Quiñonez will continue to follow as well. We will monitor her postoperative recovery and once she is stable, she can be discharged home and we will handle her care on an outpatient basis with stent removal in approximately 2 weeks. Job ID: [id number]
[2018-10-09] MEDS: Lactated Ringer's 1,000 ML IV SCH ×2 (03:46→11:29)
[2018-10-09] MEDS: Sodium Chloride 0.9% 1,000 ML IV SCH (04:24)
[2018-10-09] MEDS: HYDROcodone/Acetaminophen 5/325 mg Tablet PO PRN ×3 (05:12→20:17)
[2018-10-09 06:45] LABS: Hemoglobin 8.5 g/dL (12.0-16.0); Mean Corpuscular Hemoglobin 33.7 pg (27.0-31.0); Mean Corpuscular Volume 99.2 fL (78.0-98.0); Platelet Count 142 thou/uL (130-400); RBC Distribution Width 11.5 % (11.5-14.5); Red Blood Cell (RBC) Count 2.51 mill/uL (4.20-5.40); White Blood Cell (WBC) Count 9.1 thou/uL (4.8-10.8)
[2018-10-09 07:03] LABS: Anion Gap 10 mmol/L (10-20); BUN (Urea Nitrogen) 14 mg/dL (9.8-20.1); Calc. Creatinine Clearance 58 mL/min (70-130); Calcium 8.1 mg/dL (7.8-10.44); Carbon Dioxide 25 mmol/L (23-31); Chloride 106 mmol/L (98-107); Estimated GFR-MDRD 54; Glucose 139 mg/dL (83-110); Potassium 4.1 mmol/L (3.5-5.1); Sodium 137 mmol/L (136-145)
[2018-10-09] MEDS: Hydrochlorothiazide 25 MG TAB PO SCH (08:44)
[2018-10-09 13:39] LABS: Hemoglobin 9.1 g/dL (12.0-16.0)
--- NOTE | 2018-10-09 13:52 | PRG ---
DATE OF SERVICE: 10/09/2018 SUBJECTIVE: Ms. Griffin is postoperative day #1 from a laparotomy for treatment of her uretero-sciatic hernia. She had some intraoperative venous bleeding from her left hemipelvis. Although this controlled at the time of surgery, for this reason, she is left at bedrest currently. She has no complaints. She notes a little appropriate soreness. She is tolerating clear liquids. OBJECTIVE: VITAL SIGNS: On examination, she is afebrile. Pulse is stable at 82, blood pressure is 112/67. Her urine output overnight was excellent. Her urine is certainly blood tinged. LUNGS: Clear to auscultation. CARDIAC: Regular rate and rhythm. ABDOMEN: Mildly distended/protuberant. Bowel sounds are present and appear to be normoactive. Dressing is intact. There is appropriate mild diffuse tenderness to palpation. LABORATORY DATA: Her immediate postoperative hemoglobin was 10.2, and her hemoglobin this morning is 8.5. Her white blood cell count is normal at 9.1. Her electrolytes are entirely normal. Her creatinine has dropped down to 1.0. Her glucose is slightly elevated at 139. ASSESSMENT: The patient appears to be doing well following repair of her uretero-sciatic hernia. She has somewhat decreased hemoglobin, for which a followup hemoglobin level has been ordered for today. She will be left at bedrest until it is certain that her blood level is stable. Thereafter, she will be encouraged to mobilize. Continue clear liquids for now. Job ID: [id number]
[2018-10-10] MEDS: Lactated Ringer's 1,000 ML IV SCH ×4 (01:09→17:32)
[2018-10-10 07:23] LABS: Hemoglobin 8.1 g/dL (12.0-16.0); Mean Corpuscular HGB CONC 33.4 g/dL (32.0-36.0); Mean Corpuscular Hemoglobin 33.3 pg (27.0-31.0); Mean Corpuscular Volume 99.6 fL (78.0-98.0); Mean Platelet Volume 9.3 fL (7.4-10.4); Platelet Count 139 thou/uL (130-400); RBC Distribution Width 11.8 % (11.5-14.5); Red Blood Cell (RBC) Count 2.42 mill/uL (4.20-5.40); White Blood Cell (WBC) Count 7.4 thou/uL (4.8-10.8)
[2018-10-10 07:41] LABS: Anion Gap 10 mmol/L (10-20); BUN (Urea Nitrogen) 12 mg/dL (9.8-20.1); Calc. Creatinine Clearance 68 mL/min (70-130); Calcium 8.5 mg/dL (7.8-10.44); Carbon Dioxide 29 mmol/L (23-31); Chloride 104 mmol/L (98-107); Estimated GFR-MDRD 65; Glucose 89 mg/dL (83-110); Potassium 3.6 mmol/L (3.5-5.1); Sodium 139 mmol/L (136-145)
--- NOTE | 2018-10-10 09:20 | PRG ---
DATE OF SERVICE: 10/10/2018 SUBJECTIVE: The patient states she is feeling okay. She is a little sore. Denies any significant bladder spasms or flank pain. She did have some intraoperative bleeding and therefore is currently on bedrest. Her hemoglobin this morning has decreased somewhat down to 8.6, which I feel is most likely dilutional. She otherwise denies any chest pain, shortness of breath, or new or concerning symptoms. OBJECTIVE: VITAL SIGNS: Temperature 98.1, pulse 80, respirations 16, blood pressure 104/64, saturation 93% on room air. GENERAL: No apparent distress, communicative, and alert. CARDIOVASCULAR: Regular rate and rhythm. ABDOMEN: Incision clean, dry, and intact. Soft, minimally tender to palpation. GENITOURINARY: Johnson catheter in place with light pink urine. EXTREMITIES: SCDs in place. No clubbing or cyanosis or edema. LABORATORY EVALUATION: The full set of labs in the [facility], which I have reviewed. Of note, the patient's white count is 9.1, hemoglobin of 8.5. Creatinine is 1. ASSESSMENT AND PLAN: A 78-year-old white female with a ureteral sciatic hernia, status post open repair and urethropexy postoperative day one. She likely has a mild postoperative ileus, but is currently on clear liquids. We will continue bed rest and I will plan for another hemoglobin and hematocrit this afternoon. If her hemoglobin and hematocrit is stable, I think we can slowly begin ambulation to avoid further bleeding. We will continue her pain control. Dr. Quiñonez will see the patient and make recommendations from a bowel standpoint. From my standpoint, once she is more ambulatory, we will consider a void trial and have her start voiding on her own. Job ID: [id number]
[2018-10-10] MEDS: Hydrochlorothiazide 25 MG TAB PO SCH (09:31)
[2018-10-10] MEDS: Ondansetron PF 4 MG/2 ML Vial IVP PRN ×2 (09:31→15:20)
[2018-10-10] MEDS: FLUoxetine HCl 20 MG CAP PO SCH (09:31)
[2018-10-10] MEDS: HYDROcodone/Acetaminophen 5/325 mg Tablet PO PRN ×3 (09:32→23:57)
--- NOTE | 2018-10-10 18:01 | PRG ---
DATE OF SERVICE: 10/10/2018 SUBJECTIVE: The patient states that she has increasingly nauseated overnight with worsening abdominal pain. She is also complaining of pain down her left leg. This is slightly worse than yesterday. She has not thrown up, but has been nauseated only. Her pain is not unbearable and the pain medications do seem to be working. She does not have much of an appetite otherwise. OBJECTIVE: VITAL SIGNS: Temperature 98.5, pulse 77, respirations 16, blood pressure 120/70, saturation 96% on room air. GENERAL: No apparent distress, communicating, alert, appears slightly uncomfortable. CARDIOVASCULAR: Regular rate and rhythm. ABDOMEN: Mildly distended. Incision dressed, moderately tender to palpation. : Johnson catheter in place with clear yellow urine. EXTREMITIES: No clubbing, cyanosis, or edema. SCDs in place. LABORATORY DATA: The full set of labs are in the [facility], which I have reviewed. Of note, the patient's white count is 7.4 with a hemoglobin of 8.1. Creatinine is 0.85. ASSESSMENT AND PLAN: A 78-year-old white female with a ureteral sciatic hernia, status post ureteral stent, hernia repair, and ureteropexy. Postoperative day #2, her hemoglobin has come back down again today and I am not sure if this is due to bleeding or just dilutional and fluid shift effects. Her pain in her left leg could definitely be due to either bleeding or just inflammation from surgery, given that the hernia is very close to her sciatic nerve. I offered to start her on some gabapentin, but she is leery about starting any new medications at this time. I think we can take her catheter out because she states that she does not necessarily want to have this anymore. She understands that she will either need to ambulate to void or at least use a bed barber if nothing else. We will continue to check her hemoglobin to ensure that it is not dropping, which would be concern for bleeding. I have told her to keep on clear liquids for now with very small amounts of intake and we will restart IV fluids as necessary if her intake has been poor. Job ID: [id number]
--- NOTE | 2018-10-10 20:27 | PRG ---
DATE OF SERVICE: 10/10/2018 SUBJECTIVE: Ms. Griffin is postoperative day #2 from her surgical treatment of her ureteral sciatic hernia. She had some significant problems with nausea today, but tells me that this is much better currently. She denies flatus or bowel movement. She has been taking clear liquids without emesis. She notes some discomfort to her lateral left thigh. OBJECTIVE: GENERAL: She is afebrile. VITAL SIGNS: Her pulse is between 75 and 90, blood pressure is 126/64. Urine output is excellent, 1 was 3200 mL yesterday. LUNGS: Clear to auscultation. ABDOMEN: Soft. Incision is inspected and found to be healing nicely. Bowel sounds are present and normoactive. She has no significant intraabdominal tenderness. EXTREMITIES: Unremarkable. LABORATORY DATA: Her hemoglobin is 8.1 this morning with a white blood cell count of 7.4. Her electrolytes and creatinine are normal. ASSESSMENT: The patient seems to be doing well following her surgery. Her hemoglobin is a little bit low at 8.1, and we will follow this to make sure there is no continued concern. We will continue clear liquids until her nausea resolves and increase activity she tolerates. Job ID: [id number]
[2018-10-11] MEDS: Lactated Ringer's 1,000 ML IV SCH ×6 (03:02→22:30)
[2018-10-11 07:31] LABS: Hemoglobin 8.9 g/dL (12.0-16.0); Mean Corpuscular HGB CONC 33.8 g/dL (32.0-36.0); Mean Corpuscular Hemoglobin 33.7 pg (27.0-31.0); Mean Corpuscular Volume 99.5 fL (78.0-98.0); Mean Platelet Volume 8.9 fL (7.4-10.4); Platelet Count 154 thou/uL (130-400); RBC Distribution Width 11.7 % (11.5-14.5); Red Blood Cell (RBC) Count 2.65 mill/uL (4.20-5.40); White Blood Cell (WBC) Count 7.7 thou/uL (4.8-10.8)
[2018-10-11] MEDS: Hydrochlorothiazide 25 MG TAB PO SCH (09:54)
--- NOTE | 2018-10-11 11:28 | PQF ---
DATE: 10-11-18 ATTN: DR. GIANA ELLIS Please exercise your independent, professional judgment in responding to the clarification form. Clinical indicators are provided on the bottom of this form for your review Please check appropriate box(s): [X] Acute Renal Failure (ARF) / Acute Kidney Injury ([place]) [ ] Insignificant Lab Values [ ] Other diagnosis [ ] Unable to determine In addition, please specify: Present on Admission (POA): [ X ] Yes [ ] No [ ] Unable to determine National Kidney Foundation Guidelines for CKD Staging Stage I Kidney damage with normal or increased GFR GFR > 90 Stage II Kidney damage with mildly decreased GFR GFR 60-89 Stage III Kidney damage with moderately decreased GFR GFR 30-59 Stage IV Kidney damage with severely decreased GFR GFR 16-29 Stage V Kidney failure GFR<15 ESRD End Stage Renal Disease On dialysis Acute Renal Failure/Acute Kidney Failure defined as: Increases in SCr by (>) 0.3 mg/dl within 48 hours OR- Increases in SCr by (>) 1.5 times baseline, known or presumed to have occurred within the prior 7 days OR- Urine volume < 0.5 ml/kg/hour for 6 hours (KDIGO supplement 2012 for RIFLE/МАРИНА criteria) For continuity of documentation, please document condition throughout progress notes and discharge summary. Thank You. CLINICAL INDICATORS - SIGNS / SYMPTOMS / LABS GFR: 10-06-18: 41 10-08-18: 37, 53 10-09-18: 54 10-10-18: 65 CREATININE: 10-06-18: 1.27 10-08-18: 1.39, 1.02 10-09-18: 1.00 BUN: 10-06-18: 24 10-08-18: 16, [address] ELLIS 10-08-18: WORSENING HYDRONEPHROSIS AND SLIGHT DECLINE IN KIDNEY FUNCTION ER: UNCONTROLLED AND PAIN AND NAUSEA, DECREASED URINARY OUTPUT RISK FACTORS: ER: UNCONTROLLED AND PAIN AND NAUSEA, DECREASED URINARY OUTPUT ER: MEDICATIONS: ASA, HYDROCHLOROTHIAZIDE TREATMENTS: ER: IVF MAR: LR IVF (This form is maintained as a part of the permanent medical record) 2014 [employer], [employer]. All Rights Reserved BARRON [email or web address] Office: [phone] HA
--- NOTE | 2018-10-11 11:40 | PQF ---
DATE: 10-11-18 ATTN: DR. GIANA ELLIS Please exercise your independent, professional judgment in responding to the clarification form. Clinical indicators are provided on the bottom of this form for your review Please check appropriate box(s): [ ] UTI [ ] Contaminated urine specimen without UTI [ X ] Other diagnosis ___urinary irritation [ ] Unable to determine In addition, please specify: Present on Admission (POA): [ ] Yes [ ] No [ ] Unable to determine For continuity of documentation, please document condition throughout progress notes and discharge summary. Thank You. CLINICAL INDICATORS - SIGNS / SYMPTOMS / LABS URINE: 10-06-18: URINE BLOOD: TRACE H UR LEUKOCYTE ESTERASE: SMALL H URINE WBC: 4-6 H ER DX: URETERAL OBSTRUCTION, UTI RISK FACTORS: ER DX: URETERAL OBSTRUCTION, UTI ER: DECREASED URINARY OUTPUT TREATMENT: ER: CEFTRIAXONE IV, IVF (This form is maintained as a part of the permanent medical record) 2014 [employer], [employer]. All Rights Reserved BARRON [email or web address] Office: [phone] [facility] HOSPITALJimmy
--- NOTE | 2018-10-11 15:09 | PRG ---
DATE OF SERVICE: 10/11/2018 SUBJECTIVE: Ms. Griffin is postoperative day #3 from surgical treatment of her ureteral sciatic hernia. She notes that she feels better today. She has passed gas, but has not had a bowel movement. Walking program was ordered for her, but she really has not been moving around yet. She notes intermittent discomforts in both her left lower back and elsewhere. She notes that the pain in her left leg is essentially resolved. She still has some complaint of lower abdominal pain. She continues to tolerate clears and has not vomited. OBJECTIVE: VITAL SIGNS: She is afebrile. Pulse is 75, blood pressure 121/73. Urine output for yesterday was over 2 L. it is still blood tinged. LUNGS: Clear to auscultation. ABDOMEN: Soft with normoactive bowel sounds. Incision is clean and dry. Her Johnson catheter still in at this time. LABORATORY DATA: Hemoglobin is stable at 8.9, white blood cell count of 7.7. Electrolytes were not checked today. They were normal yesterday. ASSESSMENT AND PLAN: The patient is recuperating appropriately. I will advance her diet to full liquids today. I believe, Dr. Mackenzie wanted to remove her Johnson catheter today. If she is moving around and tolerating appropriate diet, she will probably be ready for discharge tomorrow. Job ID: [id number]
[2018-10-11] MEDS: Ondansetron PF 4 MG/2 ML Vial IVP PRN ×2 (15:55→21:46)
[2018-10-11] MEDS: HYDROcodone/Acetaminophen 5/325 mg Tablet PO PRN (21:41)
[2018-10-12] MEDS: Hydrochlorothiazide 25 MG TAB PO SCH (09:02)
[2018-10-12] MEDS: FLUoxetine HCl 20 MG CAP PO SCH (09:02)
[2018-10-12] MEDS: Ondansetron PF 4 MG/2 ML Vial IVP PRN ×2 (09:18→17:42)
[2018-10-12] MEDS: HYDROcodone/Acetaminophen 5/325 mg Tablet PO PRN ×2 (10:41→20:24)
[2018-10-12] MEDS: Lactated Ringer's 1,000 ML IV SCH ×4 (10:58→19:46)
--- NOTE | 2018-10-12 13:29 | PQF ---
DATE: 10-02-18 ATTN: DR. NABEEL RECINOS Please exercise your independent, professional judgment in responding to the clarification form. Clinical indicators are provided on the bottom of this form for your review Please check appropriate box(s): [ ] POSTOP ILEUS is a complication of current/recent surgery [ x ] POSTOP ILEUS is NOT a complication of current/recent surgery [ x ] Other diagnosis ____postop ileus is almost NEVER a complication of an open surgery - it is EXPECTED!_ [ ] Unable to determine In addition, please specify: Present on Admission (POA): [ ] Yes [ x ] No [ ] Unable to determine CLINICAL INDICATORS - SIGNS / SYMPTOMS / LABS PN DR. ELLIS 10-10-18: SHE LIKELY HAS A MILD POSTOPERATIVE ILEUS, BUT IS CURRENTLY ON CLEAR LIQUIDS. RISK FACTORS: OP NOTE 10-08-18: OPEN REPAIR OF URETERO SCIATIC HERNIA WITH CYSTOSCOPY AND L URETERAL STENT PLACEMENT PER DR. ELLIS, URETHROPEXY PER DR. ELLIS, PLACEMENT OF OMENTAL FLAP PER JORJE TREATMENT: MAR: LR IVF PN DR. ELLIS 10-10-18: CURRENTLY ON CLEAR LIQUIDS. DR. RECINOS TO MAKE RECOMMENDATIONS FROM A BOWEL STANDPOINT (This form is maintained as a part of the permanent medical record) 2015 [employer], [email or web address]. All Rights Reserved BARRON [email or web address] Office: [phone] HA
--- NOTE | 2018-10-12 14:01 | PQF ---
DATE: 10-12-18 ATTN: DR. NABEEL RECINOS Please exercise your independent, professional judgment in responding to the clarification form. Clinical indicators are provided on the bottom of this form for your review Please check appropriate box(s): [ x] BLOOD LOSS FROM THE OBTURATOR VEIN is a complication of current/ recent surgery [ ] BLOOD LOSS FROM THE OBTURATOR VEIN is NOT a complication of current/ recent surgery [ ] Other diagnosis [ ] Unable to determine In addition, please specify: Present on Admission (POA): [ ] Yes [ x ] No [ ] Unable to determine CLINICAL INDICATORS - SIGNS / SYMPTOMS / LABS OP NOTE DR. RECINOS 10-08-18: THERE WERE NO COMPLICATIONS OTHER THAN APPROXIMATELY 300 ML BLOOD LOSS FROM THE OBTURATOR VEIN. HEMOGLOBIN: 10-08-18: 10.2 10-09-18: 8.5, 9.1 10-10-18: 8.[address] RECINOS 10-09-18: SHE HAD SOME INTRAOPERATIVE VENOUS BLEEDING FROM HER L HEMIPELVIS.. SHE IS LEFT AT BEDREST CURRENTLY RISK FACTORS: CONSULT NOTE DR. RECINOS 10-09-18: POST OP DAY #1 FROM A LAPAROTOMY FOR TREATMENT OF HER URETERO-SCIATIC HERNIA TREATMENT: CONSULT NOTE DR. RECINOS 10-09-18: SHE HAD SOME INTRAOPERATIVE VENOUS BLEEDING FROM HER L HEMIPELVIS.. SHE IS LEFT AT BEDREST CURRENTLY, FOLLOW UP HEMOGLOBIN LEVEL (This form is maintained as a part of the permanent medical record) 2015 [employer], [employer]. All Rights Reserved BARRON [email or web address] Office: [phone] HA
[2018-10-12] MEDS ORDERED: Ondansetron ODT 4 MG TAB PO PRN (17:59)
[2018-10-12] MEDS ORDERED: Polyethylene Glycol 3350 17 GM Packet PO SCH (21:00)
[2018-10-13] MEDS: Lactated Ringer's 1,000 ML IV SCH ×2 (04:02→04:13)
[2018-10-13] MEDS: Hydrochlorothiazide 25 MG TAB PO SCH (09:36)
[2018-10-13 11:47] VITALS: BP 111/72; TEMP 97.5
[2018-10-13] MEDS: HYDROcodone/Acetaminophen 5/325 mg Tablet PO PRN (11:53)
--- NOTE | 2018-10-13 12:32 | PRG ---
DATE OF SERVICE: 10/11/2018 SUBJECTIVE: The patient states she is still feeling a little bit nauseated, but is overall feeling pretty good. She was okay to have her catheter removed, but decided to keep it in at the last minute. Therefore, we are going to remove it today. She has not been eating very much, but states that she has been drinking okay. She has had intermittent issues with nausea. She otherwise has no other complaints and states her pain is controlled with pain medications, although she does have some soreness in her left flank. OBJECTIVE: VITAL SIGNS: Temperature 98.1, pulse 70, respirations 16, blood pressure 139/77, and saturation 92% on room air. GENERAL: No apparent distress. CARDIOVASCULAR: Regular rate and rhythm. ABDOMEN: Soft, nontender, and nondistended. Positive bowel sounds. Incision is clean, dry, and intact. : Johnson catheter in place with light pink urine. Catheter was ordered to be removed today. EXTREMITIES: SCDs in place. LABORATORY EVALUATION: The full set of labs in the [facility], which I have reviewed. Of note, the patient's white count is 7.7 with hemoglobin of 8.9. ASSESSMENT AND PLAN: A 78-year-old white female with ureteral sciatic hernia status post repair with acute kidney injury preoperatively due to obstruction, which is now resolved. Her renal function is normal. The catheter will be removed today. She had been on ceftriaxone prophylaxis for potential urinary tract infection, but her current urinalysis findings only demonstrate concern for probable stent irritation. I am not entirely concerned about any other factor with her urine and I think her catheter can be removed safely and her antibiotics discontinued. She can potentially be discharged home tomorrow pending her bowel function and her ambulation status. Job ID: [id number]
--- NOTE | 2018-10-13 12:35 | PRG ---
DATE OF SERVICE: 10/12/2018 SUBJECTIVE: The patient is feeling better today. Her catheter was removed and she has been voiding without difficulty on her own. Her urine is still a little bloody, but she denies any significant burning or pain. She still has some mild left flank discomfort and some incisional discomfort, but it seems to be controlled with her pain medication. She again has nausea this morning and this usually resolves throughout the day and comes back intermittently off and on throughout the day. Dr. Quiñonez does not believe that she has any kind of bowel obstruction at this point. She is passing gas but has not yet had a bowel movement. OBJECTIVE: VITAL SIGNS: Temperature 97.9, pulse 64, respirations 18, blood pressure 112/75, and saturation 95% on room air. GENERAL: No apparent distress, communicative. CARDIOVASCULAR: Regular rate and rhythm. ABDOMEN: Soft. No significant tenderness. Nondistended. Incision is clean, dry, and intact. : Johnson catheter is gone. EXTREMITIES: No clubbing, cyanosis, or edema. SCDs are currently off. LABORATORY DATA: On laboratory evaluation, no new labs today per review. ASSESSMENT AND PLAN: A 78-year-old white female with the ureteral sciatic hernia, status post repair with urethropexy. Resolution of acute kidney injury. No current evidence of any urinary problems. She does have some stent irritation, which can be controlled with oxybutynin and avoidance of holding her urine for long periods of time. Dr. Quiñonez feels that she can be discharged at this point, and I am okay with her going home today. I have stated that if she is still feeling a little nauseated, she is welcome to stay for one more day. We can send her home with nausea medication along with the pain medication. She states that she is eager to go home and will probably go home either today or tomorrow. Dr. Cohen will be on this weekend and I will sign out to him if the patient elects to stay, so that he may continue to see over the weekend and discharge her when she feels ready to go. Job ID: [id number]
--- NOTE | 2018-10-16 15:31 | DIS ---
DATE OF ADMISSION: 10/09/2018 DATE OF DISCHARGE: 10/13/2018 ADMISSION DIAGNOSIS: Pain from a uretero-sciatic hernia. DISCHARGE DIAGNOSIS: Pain from a uretero-sciatic hernia. PROCEDURES PERFORMED: Open repair of uretero-sciatic hernia with cystoscopy, ureteropexy and omental flap placement per Dr. Quiñonez and Dr. Mackenzie on October 08. ADMISSION HISTORY: The patient is a 78-year-old white female, who was diagnosed with a left uretero-sciatic hernia with subsequent left-sided hydronephrosis and hydroureter. This caused her significant pain, for which she had presented to the hospital. She was taken to the operating room shortly after her admission for the definitive surgery. Her surgery was complicated by some blood loss from the left retroperitoneal vein had to be managed. For this reason, she was kept at bedrest for the next day and a half after surgery. She has progressed appropriately. Her pain is resolving appropriately. She has been afebrile with normal vital signs and has been hemodynamically stable. She is tolerating her diet and is voiding well and ambulating with a walker. She is felt to be stable for discharge home at this time. I have asked her to return to see myself in 10 to 14 days for staple removal. She will be discharged home with prescription for [place] and Zofran. Follow up with Dr. Mackenzie will be arranged as well. She does have a double-J left ureteral stent currently. Job ID: [id number]
== END 2018-10-13 14:20 | disposition home or self-care (01) | DRG 354 ==
LOC: ERS 17:46 → SURG A 21:59 → OBSVTOIN 10-09 14:22
PROVIDERS: ADMIT Urology; ATTEND Urology
PROC: 0WQF0ZZ Repair Abdominal Wall, Open Approach (ICD-10-PCS; principal; 2018-10-08)
PROC: 0T778DZ Dilation of Left Ureter with Intraluminal Device, Via Natural or Artificial Opening Endoscopic (ICD-10-PCS; 2018-10-08)
PROC: 0TS70ZZ Reposition Left Ureter, Open Approach (ICD-10-PCS; 2018-10-08)
DX: K45.8 Other specified abdominal hernia without obstruction or gangrene (principal); N13.30 Unspecified hydronephrosis; I97.42 Intraoperative hemorrhage and hematoma of a circulatory system organ or structure complicating other procedure; N17.9 Acute kidney failure, unspecified; K56.7 Ileus, unspecified; N28.89 Other specified disorders of kidney and ureter; I10 Essential (primary) hypertension; M19.90 Unspecified osteoarthritis, unspecified site; K21.9 Gastro-esophageal reflux disease without esophagitis; K27.9 Peptic ulcer, site unspecified, unspecified as acute or chronic, without hemorrhage or perforation; F41.9 Anxiety disorder, unspecified
CPT/HCPCS: 36415; 74177; 74420; 80048; 80053; 81003; 81015; 83690; 85025; 85027; 96361; 96374; 96375; C1758; C1769; J0670; J0690; J0696; J1100; J1885; J2001; J2250; J2270; J2405; J2704; J3010; J7050; P9045; Q0162; Q9961

== ENCOUNTER 2018-11-30 09:15 | Outpatient (CLI) | payer MEDICARE ==
--- NOTE | 2018-11-30 11:34 | ULT ---
BILATERAL RENAL ULTRASOUND: Comparison: None. History: Hernia. Abdominal and flank pain. Technique: Multiplanar grayscale and color doppler images were obtained in a renal ultrasound. FINDINGS: The kidneys are normal in echogenicity without hydronephrosis or calculi and measure 9.4 and 9.3 cm i n length on the right and left respectively. Limited visualization of the urinary bladder is unremark able. Both ureteral jets are seen. IMPRESSION: Unremarkable renal ultrasound. POS: C
== END 2018-11-30 09:16 | disposition home or self-care (01) ==
LOC: SCSULT 09:15
PROVIDERS: ATTEND Urology
DX: K45.8 Other specified abdominal hernia without obstruction or gangrene (principal)
CPT/HCPCS: 76770

== ENCOUNTER 2019-02-01 08:43 | Outpatient (CLI) | payer MEDICARE ==
--- NOTE | 2019-02-01 09:22 | MMO ---
Bilateral MAMMO Bilat Screen [facility]. CLINICAL HISTORY: Patient is 78 years old and is seen for screening. The patient has no family history of breast cancer. The patient has no personal history of cancer. VIEWS: The views performed were: bilateral craniocaudal with tomosynthesis and bilateral mediolateral oblique with tomosynthesis. FILMS COMPARED: The present examination has been compared to a prior imaging study performed at [facility] on 01/31/2018. MAMMOGRAM FINDINGS: There are scattered fibroglandular densities. There are no suspicious masses, suspicious calcifications, or new areas of architectural distortion. IMPRESSION: THERE IS NO MAMMOGRAPHIC EVIDENCE OF MALIGNANCY. A ROUTINE FOLLOW-UP MAMMOGRAM IN 1 YEAR IS RECOMMENDED. THE RESULTS OF THIS EXAM WERE SENT TO THE PATIENT. ACR BI-RADS Category 1 - Negative MAMMOGRAPHY NOTE: 1. A negative mammogram report should not delay a biopsy if a dominant of clinically suspicious mass is present. 2. Approximately 10% to 15% of breast cancers are not detected by mammography. 3. Adenosis and dense breasts may obscure an underlying neoplasm.
== END 2019-02-01 08:44 | disposition home or self-care (01) ==
LOC: BICMAMMO 08:43
PROVIDERS: ATTEND Family Medicine
DX: Z12.31 Encounter for screening mammogram for malignant neoplasm of breast (principal)
CPT/HCPCS: 77063; 77067

== ENCOUNTER 2019-07-18 10:50 | Outpatient (CLI) | payer MEDICARE ==
--- NOTE | 2019-07-18 14:51 | CT ---
CT CHEST AND ABDOMEN AND PELVIS WITH IV CONTRAST: Date: 07/18/19 INDICATION: Recently diagnosed brain tumor. Assess for other neoplasm. FINDINGS: CT CHEST: The lung hua are clear. No infiltrate or effusion. No pulmonary mass or nodule. The mediastinum is unremarkable. No adenopathy. Thyroid unremarkable. No axillary adenopathy. IMPRESSION: No acute chest abnormality identified. CT ABDOMEN AND PELVIS: Comparison made to prior CT abdomen and pelvis dated 10/06/18. Postoperative changes at the EG junction with small sliding diaphragmatic hernia again noted. Liver, spleen, and pancreas are unremarkable. Adrenal glands appear normal. Kidneys unremarkable. Small bowel loops normal caliber. Diverticulosis of sigmoid colon with mural thickening, unchanged in appearance. Aorta normal caliber. No mass, adenopathy, or free fluid. Images through the pelvis show evidence of hysterectomy. Urinary bladder unremarkable. Osseous structures unremarkable. IMPRESSION: No acute intra-abdominal process. The left ureteral obstruction noted on prior exam is no longer pres ent. Other stable findings as noted above. POS: TPC
== END 2019-07-18 10:51 | disposition home or self-care (01) ==
LOC: CT 10:50
PROVIDERS: ATTEND Neurological Surgery
DX: D49.6 Neoplasm of unspecified behavior of brain (principal); K44.9 Diaphragmatic hernia without obstruction or gangrene; K57.30 Diverticulosis of large intestine without perforation or abscess without bleeding; K63.89 Other specified diseases of intestine; Z90.710 Acquired absence of both cervix and uterus
CPT/HCPCS: 71260; 74177; 82565

== ENCOUNTER 2019-07-31 09:52 | Outpatient (CLI) | payer MEDICARE ==
[2019-07-31] MEDS ORDERED: Gadobenate Dimeglumine 529 MG/1 ML (20ML VIAL) ONE (09:55)
--- NOTE | 2019-07-31 11:59 | MRI ---
BRAIN MRI WITH AND WITHOUT CONTRAST: HISTORY: Brain tumor. Preoperative exam. COMPARISON: 07/15/2019 at [facility]. FINDINGS: Gradient echo sequence: There does appear to be hemorrhage associated with a known mass centered in t he right thalamus. Hemorrhage was noted on the previous examination but the overall degree of hemorrhage has increased. Calvarium: T1 marrow signal hypointensity of the calvarium. Correlate for marrow infiltrative process versus anemia. Midline brain parenchyma: Unremarkable. Cerebrum:Redemonstration of a centrally intrinsic T1 hyperintense, T2 iso/hyperintense focus centered in the right thalamus. There is FLAIR signal abnormality measuring 4.0 cm mediolateral by 2.9 cm anteroposterior. There is some mass effect upon the adjacent ventricle and sulci. There is minimal le ft to right midline shift of 3 mm. Postcontrast images redemonstrate heterogeneous enhancement. There appears be a slightly more solid enhancing component along the posterior aspect, unchanged. No new or additional areas of parenchymal enhancement are appreciated. Ventricles: Stable configuration of the ventricular system. Sinuses and mastoid air cells: Mild global thickening of the paranasal sinuses. Adequate mastoid air cell aeration. Diffusion: Central arterial flow is maintained. Absent restricted diffusion. Postcontrast images:Enhancement involving the lesion in the right thalamus as described above. Area o f enhancement measures 3.9 cm mediolateral x 2.4 cm anterior-posterior. 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 There does appear be associated intralesional hemorrhage. There is also T1 marrow signal hypointensity of the calvarium. Correlate for anemia versus a marrow infiltrative process. CODE T Transcribed Date/Time: 07/31/2019 12:09 PM
== END 2019-07-31 09:53 | disposition home or self-care (01) ==
LOC: MRI 09:52
PROVIDERS: ATTEND Neurological Surgery
DX: G93.89 Other specified disorders of brain (principal); D49.6 Neoplasm of unspecified behavior of brain
CPT/HCPCS: 70553; 82565; A9577

== ENCOUNTER 2019-08-30 13:06 | Outpatient (CLI) | payer MEDICARE ==
--- NOTE | 2019-08-30 13:52 | ULT ---
EXAM: Bilateral lower extremity venous ultrasound HISTORY: Weakness. Swelling. COMPARISON: None TECHNIQUE: Multiplanar grayscale and color Doppler images were obtained in a bilateral lower extremit y venous ultrasound. Spectral analysis of the Doppler waveforms were performed. FINDINGS: The bilateral common femoral vein, profunda femoral veins, superficial femoral veins, and p opliteal veins are normal in appearance without visible thrombus. These vessels demonstrate normal compression, flow, and augmentation. The bilateral posterior tibial veins, profunda femoral veins and greater saphenous veins are patent w ithout evidence of DVT. Right popliteal fossa: 5.2 x 3.8 x 1.8 cm anechoic focus, compatible with Cordero's cyst cyst. Left popliteal fossa: 5.5 x 2.9 x 1.9 cm anechoic focus with internal echoes compatible with a comple x Cordero's cyst IMPRESSION: No evidence of DVT in the left or right lower extremity. Bilateral Cordero's cyst. Left Cordero's cyst ap pear to be complex.
== END 2019-08-30 13:07 | disposition home or self-care (01) ==
LOC: ULT 13:06
PROVIDERS: ATTEND Physical Medicine & Rehabilitation
DX: Z03.89 Encounter for observation for other suspected diseases and conditions ruled out (principal); I10 Essential (primary) hypertension; K21.9 Gastro-esophageal reflux disease without esophagitis; F32.9 Major depressive disorder, single episode, unspecified; M71.22 Synovial cyst of popliteal space [Baker], left knee; M71.21 Synovial cyst of popliteal space [Baker], right knee
CPT/HCPCS: 93970